=== PATIENT | male | born 1940 | race Caucasian/White ===

== ENCOUNTER → 2019-01-04 | Outpatient (BNV) | payer MEDICARE, SELFPAY ==
--- NOTE | 2019-01-04 17:59 | CWCCLINC_ITS ---
Vital Signs 01/04/19 18:01 Height 1.78 m Weight 75 kg BMI 23.6 [facility] Height/Weight 01/04/19 18:01 Height 1.78 m Weight 75 kg Body Mass Index 23.6 [facility] OP NEAP Referral Referral Source: [facility]: Dr. Tam Hill Subjective: Nutrition Consult Referral for CA R Tonsil-head/neck-will be starting chemo- radiation soon, unable to get G-tube, pt will probably need TPN Visited pt Fransisco and Thomas at [facility] on 12/22, 12/29 and had a phone discussion with Thomas on January 02 and January 04. Fransisco reports having difficulty swallowing and unable to open mouth wide with pain in jaw related to R tonsil cancer, especially after the dental procedure of removal of a tooth since August 2018. Fransisco and states he was making a great effort to eat/drink despite the discomfort to prevent weight loss and trying to maintain a good nutrition status. In good days, Fransisco used to be eating 40-50% of soft food and able to tolerate Ensure plus up to3- 5x per day. Recently, Fransisco reports food taste horrible, not having much appetite. With increasing difficulty in swallowing and unable to open mouth wide; Fransisco experience choking or liquid went into his nostril and it forced him to slow down and stop oral intake of even Ensure plus. He is no longer able to eat/drink much orally. Stated height: 5?10?, Stated weight: 165 pounds. Fransisco trying to keep weight around 165-170 pounds. Fransisco states lost 5 pounds in past months and able to regain it back. 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 PEG placement was attempted twice in Dec? and it was not able to be placed. Fransisco has Medicare and [employer] insurance coverage. Authorization request for the approval of TPN and needs for Oral Nutritional Supplement of Ensure Plus was faxed to [employer] ([employer]) and it was denied due to not meeting medical criteria. Education comment: Information on Radiation therapy and Nutrition, Chemotherapy and Nutrition, common side effects and ways to increase Calories and Protein in Diet reviewed. Recipes on high kcal/high protein also provided. 01/02/19:Discussed the insurance denial with , she stated they are willing to pay for it out of pocket for the TPN. [facility] is coordinating the provision TPN supplies and home health nursing services to manage the administration of TPN. Fransisco start his first TPN 01/04/19. Education Recipient: Patient and Family ( Thomas) Response to teaching: Verbalizes understanding Follow-up Visit needed: Yes Follow-up Visit: 3-4 weeks *[facility] Office Visit complete [facility] Offive Visit Complete [facility] Visit Complete?: Yes
[2019-01-04 18:01] VITALS: BMI 23.6
== END | disposition home or self-care (01) ==

== ENCOUNTER 2025-01-03 10:37 | Outpatient (RCR) | payer MEDICARE, SELFPAY ==
--- NOTE | 2025-01-03 11:24 | CTCFLWUP_ITS ---
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 Treated with chemoradiation for right tonsillar CA between 12/22/2018 through 03/01/2019 with good response at local site. On 08/07/2019 CT of the chest revealed 2 solid spiculated noncalcified nodules left lung. Biopsy was positive for p16 positive metastatic squamous SCCA. PET scan 11/15/2019 revealed interval 15 mm hypermetabolic left tracheobronchial lymph node with no pulmonary nodules and no hypermetabolic lesions at head and neck site. Patient received Opdivo under Dr. Hill?s direction. Stopped 07/02/2020 after weakness and fatigue. Underwent 5000 cGy via SBRT to left lung lesion completed 12/16/2021. On last visit 06/21/[address] Hill but did not want any imaging studies and stated that he was doing well. Patient recently has been experiencing dental problems has seen both oral surgeon and dentist who felt there was irregular area in the right side of his oral cavity and asked to be seen by an oncologist again. Looking at his mouth there is some irregularities around the treatment site in the right side in buccal region no definite signs of regrowth ulceration tumor that was easily visible on my exam. Assessment.#1. 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 #2. prior treatment with chemoradiation 2018 to oral cavity and lung radiation 2021. #3. Responded well but did not return for follow-up at [facility] for the past 2 years. #4. PET scan ENT eval. #5. Follow-up in 2 months. Cc: Akil Angeles MD Electronically signed by: Chema Davis M.D. 01/03/2025 11:21 AM
== END 2025-01-29 23:59 | disposition home or self-care (01) ==
LOC: SCTC 10:37
PROVIDERS: PCP Internal Medicine; Referring Provider Internal Medicine; Visit Provider Radiology Therapeutic Radiology
DX: C09.9 Malignant neoplasm of tonsil, unspecified (principal); C78.02 Secondary malignant neoplasm of left lung; Z92.3 Personal history of irradiation; Z92.21 Personal history of antineoplastic chemotherapy
CPT/HCPCS: 99213; G0463

== ENCOUNTER → 2025-01-11 | Outpatient (CLI) | payer MEDICARE, SELFPAY ==
--- NOTE | 2025-01-11 12:30 | XR_ITS ---
EXAMINATION: PET/CT FUSION SKULL TO THIGH EXAM DATE AND TIME: January 11, 2025 1336 hrs. Comparison PET/CT scan November 14, 2021 Indications: Diagnosis angina neck cancer, cancer tonsil, secondary lung cancer, PET/CT scan November 14, 2021 15 mm hypermetabolic left tracheobronchial lymph node CTDI:vol (mGy) 5.52 DLP: (mGycm) 504 PROCEDURE: 14.9 mCi FDG was administered intravenously To allow for distribution and uptake of radiotracer, the patient was allowed to rest quietly in a shielded room. Imaging was performed on an integrated 16-slice PET/CT scanner, with scanning from the skull base to the mid thigh. Serum blood glucose at the time of the injection was measured 96 mg/dL. CT scanning was performed without oral or intravenous contrast material. FINDINGS: Head and Neck: Symmetrical hypermetabolic activity in the neck, however the patient is extremely kyphotic which makes assessment difficult Chest: There is no casey hypermetabolism in the chest. There are no pulmonary nodules. Atelectasis in the lower lung zones Abdomen and Pelvis: There is no casey hypermetabolism in retroperitoneal or pelvic chains. The spleen is normal in size and FDG avidity. Tiny bladder calculi Musculoskeletal: Marrow uptake is within normal range. IMPRESSION: No current mediastinal adenopathy or pulmonary nodules No interval abdominal or pelvic metastatic disease Symmetrical hypermetabolic activity in the neck, however the patient is extremely kyphotic which makes assessment difficult, recommend CT soft tissue neck follow-up post intravenous contrast
== END | disposition home or self-care (01) ==
PROVIDERS: PCP Internal Medicine; Referring Provider Radiology Therapeutic Radiology; Visit Provider Radiology Therapeutic Radiology
DX: C09.0 Malignant neoplasm of tonsillar fossa (principal); C44.222 Squamous cell carcinoma of skin of right ear and external auricular canal; C78.02 Secondary malignant neoplasm of left lung
CPT/HCPCS: 78815; A9552

== ENCOUNTER 2025-03-07 11:19 | Outpatient (RCR) | payer MEDICARE, SELFPAY ==
--- NOTE | 2025-03-07 11:44 | CTCFLWUP_ITS ---
[facility] [address] [place], [place] [address] FOLLOW-UP NOTE Date: 03/07/2025 MR#: [id number] Name: MITESH ALTMAN : 1940 Dx: C09.0 Malignant neoplasm of tonsillar fossa Identification. Patient with stage IV p16 positive squamous and CA the right tonsil with lung mets. Treated with chemoradiation right tonsillar CA between 12/22/2018 through 03/01/2019 with good response at local site. 08/07/2019 CT of the chest revealed 2 solid spiculated noncalcified nodules left lung. Biopsy was positive for p16 positive metastatic squamous of CA. PET scan 11/15/2019 revealed interval 15 mm hypermetabolic left tracheobronchial lymph node with no pulmonary nodules and no hypermetabolic lesions at head and neck site. Received Opdivo under Dr. Hill's direction stopped 07/02/2020 after weakness and fatigue. Underwent 5000 cGy via SBRT left lung lesion completed 12/16/2021. PET scan 01/11/2025 showed no current mediastinal adenopathy or pulmonary nodules. Symmetrical hypermetabolic activity in the neck but due to patient's body position made assessment difficult. CT neck recommended. Evaluated by ENT Dr. Grover, and he declined laryngoscopy. A#1 History of stage IV right tonsillar CA #2. chemoradiation for right tonsillar CA 2018 with complete response. #3 Biopsy positive lung met SBRT with good response 2021. #4. most recent PET suggests no recurrence with some nonspecific activity in the neck. #5. laryngoscopy recommended by ENT and CT recommended radiologist which he prefers to decline for the time being. #6. Patient will contact me again if he decides otherwise. Electronically signed by: Chema Davis M.D. 03/07/2025 11:42 AM
== END 2025-03-31 23:59 | disposition home or self-care (01) ==
LOC: SCTC 11:19
PROVIDERS: PCP Internal Medicine; Referring Provider Internal Medicine; Visit Provider Radiology Therapeutic Radiology
DX: Z08 Encounter for follow-up examination after completed treatment for malignant neoplasm (principal); Z85.818 Personal history of malignant neoplasm of other sites of lip, oral cavity, and pharynx; Z85.118 Personal history of other malignant neoplasm of bronchus and lung; Z92.3 Personal history of irradiation; Z92.21 Personal history of antineoplastic chemotherapy
CPT/HCPCS: 99212; G0463